=== PATIENT | male | born 1985 | race Two or more races ===

== ENCOUNTER 2020-07-06 20:21 | Emergency (ER) | payer OTHER, SELFPAY ==
--- NOTE | 2020-07-06 | XR_ITS ---
EXAMINATION: XR CHEST CLINICAL INFORMATION: Cough COMPARISON: None TECHNIQUE: 2 views of the chest were obtained. FINDINGS: No significant abnormality is noted involving the heart, lungs, mediastinum, bony thorax or soft tissues. IMPRESSION: Unremarkable examination.
[2020-07-06 20:38] VITALS: BP 121/82; PULSE 82; RESP 20; TEMP 36.7; O2SAT 98; BMI 22.3
--- NOTE | 2020-07-06 21:02 | ED.ASTHMA ---
HPI - Asthma General Chief Complaint: Upper Respiratory Symptoms Stated Complaint: ASTHMA Time Seen by Provider: 07/06/20 21:02 Source: patient Mode of arrival: ambulatory Limitations: no limitations History of Present Illness HPI Narrative: this is a 34-year-old male with significant past medical history of asthma and presents with 2 weeks of worsening shortness of breath and nasal congestion without fevers, chills, GI symptoms, or symptoms. Patient states that he has used his inhaler multiple times throughout the day without symptomatic relief. Related Data Previous Rx's Medication Instructions Recorded prednisone 40 mg PO DAILY 4 Days #8 tab 07/06/20 Allergies Allergy/AdvReac Type Severity Reaction Status Date / Time No Known Allergies Allergy Verified 07/06/20 20:37 Review of Systems Review of Systems: Pertinent positives and negatives as stated in the HPI. GEN: no fevers, chills, fatigue HEENT: no nasal congestion, sore throat, ear pain NEURO: no headache, dizziness, focal weakness PULM: no cough CV: no chest pain, palpitations, LE edema ABD: no abdominal pain, nausea, vomiting, diarrhea : no dysuria, urgency, frequency SKIN: no rash ROS otherwise negative x 10 PMFSH Past Medical History Source: nursing notes reviewed Medical History Asthma Social History Social History Alcohol intake: never Smoking Status: Never smoker Use of substances other than those prescribed or required for medical reasons: No Advance Directives: No Advance Directives Information Provided: No Physical Exam Vital Signs and I&O and Narrative: Vital Signs and I&O: Vital Signs Temp 98.1 F 07/06/20 20:38 Pulse 82 07/06/20 20:38 Resp 22 H 07/06/20 22:12 BP 121/82 07/06/20 20:38 Pulse Ox 98 07/06/20 20:38 Intake & Output 07/06/20 07/06/20 07/07/20 06:59 18:59 06:59 Weight 72.575 kg Body Mass Index 22.3 VITAL SIGNS: Reviewed. GENERAL: Well developed, well nourished, in no acute distress. HEAD: Normocephalic/atraumatic, Posterior oropharynx was without edema, erythema or exudate. EYES: PERRLA, Pupils <>, EOMI intact without pain, no nystagmus/pallor/icterus noted EARS: Ext canals without abnormality, TMs non-bulging and non-erythematous NOSE: Nares patent bilateral OROPHARYNX: no oral lesions noted, posterior pharynx clear and non-erythematous without noted tonsillar enlargement/erythema/exudates NECK: Supple, no adenopathy LUNGS: Diffuse expiratory wheezing bilaterally, no tachypnea, No adventitious sounds or accessory muscle use. SpO2<98%> CARDIOVASCULAR: Regular rate and rhythm without noted murmurs, no JVD or lower extremity edema. ABDOMEN: Soft, non-tender, non-distended with bowel sounds. No rigidity. No guarding. No palpable masses or hernias noted MUSCULOSKELETAL: No tenderness, deformities, or effusions noted on gross inspection. EXTREMITIES: No cyanosis, clubbing or edema. SKIN: Inspection of the skin reveals no rashes, ulcerations, jaundice, pallor, or petechiae. NEUROLOGIC: Alert and oriented x 3. Strength and sensation to light touch were grossly intact x 4. Course Course Course Narrative: this is a 34-year-old male with history and clinical presentation consistent with mild asthma exacerbation that fully resolved after receiving IV Solu-Medrol as well as an hour long 10 mg albuterol treatment. On re-evaluation with focus lung exam there are only trace wheeze noted and patient otherwise reports significant symptomatic relief. Patient was discharged in stable condition. Discharge Plan Discharge Clinical Impression: Asthma with acute exacerbation Qualifiers: Asthma severity: mild Asthma persistence: persistent Qualified Code(s): J45.31 - Mild persistent asthma with (acute) exacerbation Patient Disposition: Home, Self-Care Instructions: Asthma (ED) Additional Instructions: 1. consider using Claritin D to manage your nasal congestion 2. use your albuterol inhaler, 2 puffs, every 4 hours, for the next 24-48 hours. 3. establish care with a primary care provider at your earliest convenience. The patient and/or family acknowledge understanding of results (as applicable), diagnosis, treatment plan, need for follow up, and symptoms that should prompt a return to the emergency room. Prescriptions: New prednisone 20 mg tablet 40 mg PO DAILY 4 Days Qty: 8 RF: 0 Discharge Date/Time: 07/06/20 23:05
[2020-07-06] MEDS: methylPREDNISolone Sod Succ/PF 125 MG/2 ML VIAL IVPUSH (21:43)
[2020-07-06] MEDS: Albuterol Sulfate (0.083%) 2.5 MG/3 ML VIAL.NEB 10 MG INHALE (22:00)
[2020-07-06 22:12] VITALS: RESP 22
== END 2020-07-06 23:05 | disposition home or self-care (01) ==
PROVIDERS: Emergency Provider Student in an Organized Health Care Education/Training Program
DX: J45.31 Mild persistent asthma with (acute) exacerbation (principal)
CPT/HCPCS: 71046; 96374; 99284; J2930

== ENCOUNTER 2021-02-14 18:21 | Emergency (ER) | payer OTHER, SELFPAY ==
[2021-02-14 20:13] VITALS: BP 119/73; PULSE 66; RESP 20; TEMP 36.6; O2SAT 99; BMI 23.6
[2021-02-14] MEDS: Lidocaine HCl 1 % MPF 5 ML VIAL SUBCUT (20:58)
[2021-02-14] MEDS: Diphth,Pertus(ACell),Tet Adult 0.5 ML SYRINGE IM (20:58)
--- NOTE | 2021-02-14 21:04 | ED.WOUNDLAC ---
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 Denies any other symptom complaints or concerns at this time. Up-to-date on tetanus. Place: work Patient tetanus UTD: No Context: accidental Associated symptoms: none Treatments prior to arrival: bandage Related Data Previous Rx's Medication Instructions Recorded prednisone 40 mg PO DAILY 4 Days #8 tab 07/06/20 hydrocodone-acetaminophen 1 tab PO Q8H PRN #10 tab 02/14/21 Allergies Allergy/AdvReac Type Severity Reaction Status Date / Time No Known Allergies Allergy Verified 02/14/21 20:13 Review of Systems Review of Systems: Constitutional : No Fever, No Chills, Cardiovascular : No Chest Pain, No SOB Respiratory : No Dyspnea Gastrointestinal : No abdominal pain Musculoskeletal : No Joint Swelling Skin : positive skin laceration, No Foreign bodies, No rash, No surrounding erythema Neuro : No Weakness, No Numbness/tingling Psych : No SI/HI/thoughts of self injury Yes all other systems are reviewed and are negative [facility] Past Medical History Attestation statement: The following information was validated with the patient. Medical History Asthma HIV (human immunodeficiency virus infection) Social History Social History Alcohol intake: never Smoking Status: Never smoker Smoked in Last 30 Days: No Use of substances other than those prescribed or required for medical reasons: No Advance Directives: No Advance Directives Information Provided: Yes Physical Exam Vital Signs: Vital Signs: Last Vital Signs Temp 97.9 F 02/14/21 20:13 Pulse 66 02/14/21 20:13 Resp 20 02/14/21 20:13 BP 119/73 02/14/21 20:13 Pulse Ox 99 02/14/21 20:13 Body Mass Index 23.6 vital signs have been reviewed as normal and appeared to be correct. Blood pressure normal. Heart rate normal. Respiration rate normal. Temperature normal. Oxygen saturation normal. Appearance: Alert. Oriented X3. No acute distress. Head: Normal external exam. Normocephalic. Atraumatic. Eyes: PERRLA. EOMI. Conjunctiva and sclera normal. Eyelids normal. ENT: Pharynx normal. Uvula midline. Moist mucous membranes. Neck: Normal inspection. Neck supple. FROM. No adenopathy. Thyroid Normal. No meningeal signs. No neck mass noted. CVS: Normal heart rate and rhythm. Heart sound normal. No murmurs noted. Pulses normal throughout. Respiratory: No respiratory distress. Painless inspiration. Breath sounds normal. No wheezes/rales/rhonchi noted. Chest nontender. No accessory muscle usage noted or decreased air movement noted. Back: Full range of motion noted. Skin: To left thumb at the proximal aspect patient has a 2 cm intermediate laceration no active bleeding or foreign bodies noted. No tendon or ligament injury. The rest of the Skin is warm and dry. Normal skin color. Normal skin turgor. No rashes/lesions noted. Extremities: Extremities exhibit normal range of motion. Extremities nontender. Neuro: Oriented X 3. No motor deficit. No sensory deficit. Reflexes normal. Course Course Course Narrative: Patient is status post laceration repair with [address]. Patient tolerated procedure well no complications. Tetanus updated at this time. Will DC home with symptomatic treatment instructions to return in 10 days for suture removal and to follow up with primary care provider. Patient understands agrees with this plan. Procedures Laceration Laceration 1: Site: hand Side (If applicable): left Size (cm): 2 Description: linear Depth: simple, single layer Local Anesthetic: lidocaine 1% Amount of anesthesia used (mL): 3 Pre-repair: wound explored, irrigated extensively and deep structures intact Skin layer closed with: nylon Size (cm): 5-0 Number of sutures: 5 Technique: simple, interrupted Discharge Plan Discharge Clinical Impression: Laceration Patient Disposition: Home, Self-Care Instructions: Diphtheria/Tetanus Vaccine (By injection), Finger Laceration (ED) Prescriptions: New hydrocodone-acetaminophen 5-325 mg tablet 1 tab PO Q8H PRN (Reason: pain) Qty: 10 RF: 0 No Action prednisone 20 mg tablet 40 mg PO DAILY 4 Days Qty: 8 RF: 0 Referrals: Lucille Eller PA [Emergency Midlevel Provider] - 10 days (For suture removal) Stand Alone Forms: Work/School Release Print Language: Nepali
== END 2021-02-14 21:14 | disposition home or self-care (01) ==
PROVIDERS: Emergency Provider Emergency Medicine Emergency Medical Services; PCP Internal Medicine
DX: S61.012A Laceration without foreign body of left thumb without damage to nail, initial encounter (principal); W27.8XXA Contact with other nonpowered hand tool, initial encounter; Y93.89 Activity, other specified; Y92.511 Restaurant or cafe as the place of occurrence of the external cause; Y99.0 Civilian activity done for income or pay; B20 Human immunodeficiency virus [HIV] disease
CPT/HCPCS: 12001; 90471; 90715; 99284

== ENCOUNTER 2021-04-20 23:21 | Emergency (ER) | payer OTHER, SELFPAY ==
[2021-04-20 23:26] VITALS: BP 115/70; BP 135/80; PULSE 89; PULSE 90; RESP 28; TEMP 36.4; O2SAT 100; BMI 22.9
--- NOTE | 2021-04-20 23:33 | ED.URI ---
HPI - URI/Sore Throat General Chief Complaint: Skin/Abscess/Foreign Body Stated Complaint: cough Time Seen by Provider: 04/20/21 23:32 Source: patient Mode of arrival: ambulatory Limitations: no limitations History of Present Illness HPI Narrative: Patient history of anxiety head or your around 2200 feel that food is stuck in the throat very anxious maintaining his secretions able to drink fluids in the ER . patient reports severe anxiety hyperventilating patient took 25 mg atarax prior to arrival Related Data Previous Rx's Medication Instructions Recorded prednisone 40 mg PO DAILY 4 Days #8 tab 07/06/20 hydrocodone-acetaminophen 1 tab PO Q8H PRN #10 tab 02/14/21 Allergies Allergy/AdvReac Type Severity Reaction Status Date / Time No Known Allergies Allergy Verified 04/20/21 23:33 Review of Systems Review of Systems: Yes all other systems are reviewed and are negative [facility] Past Medical History Medical History Anxiety Asthma Bipolar 1 disorder HIV (human immunodeficiency virus infection) Social History Social History Alcohol intake: never Advance Directives: No Advance Directives Information Provided: Yes Physical Exam Vital Signs: Vital Signs: Last Vital Signs Temp 97.6 F 04/20/21 23:26 Pulse 89 04/20/21 23:26 Resp 28 H 04/20/21 23:26 BP 115/70 04/20/21 23:26 Pulse Ox 100 04/20/21 23:26 Body Mass Index 22.9 Appearance: Alert. Oriented X3. No acute distress. Very anxious Eyes: PERRLA, ENT: Pharynx normal. Oral Mucosa moist Neck: Normal inspection. Neck supple. CVS: Normal heart rate and rhythm. Pulses normal. Respiratory: No respiratory distress. Equal air entry bilateral, no wheezing/rales/rhonchi Abdomen: Soft and nontender. Bowel sounds are present, Skin: Skin warm and dry. Normal skin color. Extremities: No lower extremity edema. Neuro: Oriented X 3. No motor deficit. MDM - URI/Sore Throat MDM Narrative Medical decision making narrative: Patient is relaxed now feeling much better at p.o. fluids will discharge patient home Discharge Plan Discharge Clinical Impression: Foreign body sensation in throat Patient Disposition: Home, Self-Care Instructions: Esophageal Foreign Body (ED) Additional Instructions: Likely you have small food particle in pharyngeal muscles. Drink plenty of fluid have some soft bread / banana feeling should go away with time Prescriptions: No Action hydrocodone-acetaminophen 5-325 mg tablet 1 tab PO Q8H PRN (Reason: pain) Qty: 10 RF: 0 prednisone 20 mg tablet 40 mg PO DAILY 4 Days Qty: 8 RF: 0
--- NOTE | 2021-04-20 23:38 | PC.NURSE ---
at bedside for primary eval.
[2021-04-21] MEDS: Lidocaine HCl Viscous 2 % 15 ML SOLUTION MUCOUS MEM (00:13)
--- NOTE | 2021-04-21 00:14 | PC.NURSE ---
Medicated per MAR.
[2021-04-21 01:02] VITALS: BP 109/64; PULSE 68; RESP 16; O2SAT 97
== END 2021-04-21 01:10 | disposition home or self-care (01) ==
PROVIDERS: Emergency Provider Internal Medicine; PCP Internal Medicine
DX: R09.89 Other specified symptoms and signs involving the circulatory and respiratory systems (principal); F41.9 Anxiety disorder, unspecified; Z21 Asymptomatic human immunodeficiency virus [HIV] infection status; Z79.899 Other long term (current) drug therapy
CPT/HCPCS: 99283; 99284

== ENCOUNTER 2024-11-12 21:11 | Emergency (ER) | payer BC, SELFPAY ==
[2024-11-12 21:14] VITALS: BMI 23.0
--- NOTE | 2024-11-12 21:14 | ED.GENADULT ---
HPI - General Adult General Chief complaint: ETOH/Substance Use Stated complaint: substance use, in crisis Time Seen by Provider: 11/12/24 21:14 History of Present Illness ED Provider: Bhavya HURTADO narrative: The patient is a 39-year-old male who was brought to the hospital by ambulance after becoming profoundly agitated. He says that he used methamphetamine. Apparently who was at home when he used the methamphetamine. He called family members because he started to feel unwell with significant agitation. His mother, whom he called, called an ambulance and he was brought to the hospital. There has been no trauma. He denies other drug use. Related Data Previous Rx's ?Medication ?Instructions ?Recorded prednisone 20 mg tablet 40 mg (2 x 20 mg) PO DAILY 4 days 07/06/20 #8 tabs hydrocodone 5 mg-acetaminophen 325 1 tab PO Q8H PRN pain #10 tabs 02/14/21 mg tablet Allergies Allergy/AdvReac Type Severity Reaction Status Date / Time No Known Allergies Allergy Verified 11/12/24 21:17 Review of Systems Review of Systems: Yes all other systems are reviewed and are negative [facility] Past Medical History Medical History Anxiety Asthma Bipolar 1 disorder HIV (human immunodeficiency virus infection) Social History Social History Alcohol intake: never Advance Directives: No Advance Directives Information Provided: Yes Do you have a plan to hurt others: No Plan Physical Exam ED Vital Signs: Vital Signs - 24 hr 11/12/24 21:14 11/12/24 23:46 11/13/24 02:06 Temperature 97.7 F 97.1 F Pulse Rate 76 73 Respiratory Rate 16 15 Blood Pressure 101/52 L 100/54 L Pulse Oximetry 97 95 Oxygen Delivery Method Room Air Room Air Room Air BMI result Body Mass Index 23.0 Const Other: The patient was awake and alert and profoundly agitated although he seemed to be trying to cooperate with staff although he had trouble keeping still. HENMT Other: Face was symmetrical. Mucous membranes moist. Eyes Other: The patient is left eye showed around pupil about 2-3 mm in size. Patient's right eye had a pupil that was about 6 mm in size. 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 Neck Other: Full range of motion of his neck. No nuchal rigidity. No adenopathy. Resp Effort & Inspection: normal respiratory effort Auscultation: clear to auscultation bilaterally Cardio Rate: tachycardic Rhythm: regular rhythm Heart sounds: S1 normal heart sound present and S2 normal heart sound present GI Other: Abdomen was soft and did not seem tender. Skin General skin exam: no rashes or lesions noted Neuro Other: The patient was awake but very agitated and restless. He had to be held down because he could not keep still. He did not seem in coherent. Cranial nerves seemed intact. He had symmetrical tone and strength in his extremities. He seemed intoxicated and agitated but without focal finding. Extrem Other: No peripheral edema Medications Administered Discontinued Medications Generic Name Dose Route Start Last Admin Trade Name Freq PRN Reason Stop Dose Admin Sodium Chloride 1,000 mls @ 999 mls/hr 11/12/24 21:30 11/12/24 21:49 Ns IV 11/12/24 22:30 999 mls/hr .Q1H1M EVETTE Administration Potassium Chloride/Sodium Chloride 40 meq in 1,000 mls @ 250 mls/hr 11/12/24 23:00 11/13/24 00:10 Kcl 40 Meq In 0.9 % Sodium Chl IV 11/13/24 02:59 Not Given .Q4H EVETTE Lactated Ringer's 1,000 mls @ 999 mls/hr 11/12/24 23:30 11/12/24 23:54 Lr IV 11/13/24 00:30 999 mls/hr .Q1H1M EVETTE Administration Potassium Chloride 10 meq in 100 mls @ 100 mls/hr 11/12/24 23:30 11/13/24 02:11 Potassium Chloride/H20 IV 11/13/24 01:29 100 mls/hr Q1H EVETTE Administration Lorazepam 1 mg 11/12/24 23:54 11/13/24 00:02 Lorazepam 2 Mg/Ml Vial IVPUSH 11/12/24 23:55 1 mg ONCE ONE Administration Midazolam HCl 10 mg 11/12/24 21:14 11/12/24 21:17 Midazolam Hcl 5 Mg/Ml Vial IM 11/12/24 21:15 10 mg ONCE ONE Administration Midazolam HCl 5 mg 11/12/24 21:25 11/12/24 21:28 Midazolam Hcl 5 Mg/Ml Vial IM 11/12/24 21:26 5 mg ONCE ONE Administration Olanzapine 10 mg 11/12/24 21:14 11/12/24 21:29 Olanzapine 10 Mg Vial IM 11/12/24 21:15 10 mg ONCE ONE Administration Medical Decision Making Medical Decision Making [facility] Narrative: The patient this 39-year-old male who presented by ambulance after becoming acutely agitated after using methamphetamine. He denied any co-ingestants. He was agitated the point where he needed to be held and it seemed as though he required sedation. He was given IM midazolam and olanzapine. He was briefly placed in physical restraints for his own safety. Not long after receiving the IM medications he seemed much calmer and he was taken out of the restraints. His labs showed a potassium of 2.9. He was given IV fluids. He was given a some IV potassium replacement. He has been observed for several hours. He has a slight elevation in CPK which did not seem to be rising significantly quickly. A repeat potassium level was normal. At this point I think the patient has largely recovered from the methamphetamine affect although he is still sedated. The patient will be kept in the emergency room until he is awake enough to be re-evaluated. I expect he will probably be discharged. The patient will be placed in physician observation. Lab Data 11/12/24 21:45 11/13/24 02:40 Labs: Lab Results 11/12/24 11/12/24 11/13/24 Range/Units 21:45 22:18 02:40 WBC 7.1 (4.8-10.8) X10*3/uL RBC 4.56 L (4.60-5.80) X10*6/uL Hgb 13.0 L (14.0-18.0) g/dl Hct 37.2 L (42.0-52.0) % MCV 81.6 (80.0-98.0) fL MCH 28.5 (27.0-33.0) pg MCHC 34.9 (31.0-36.0) g/dl RDW 13.2 (11.0-16.0) % Plt Count 310 (160-400) X10*3/uL MPV 10.1 (9.4-12.4) fL Immature Gran % (Auto) 0.1 (0.0-0.4) % Neut % (Auto) 62.8 (45-73) % Lymph % (Auto) 21.6 (20-40) % [place] % (Auto) 11.0 (2-11) % Eos % (Auto) 3.8 (0-4) % Baso % (Auto) 0.7 (0-2) % Lymph # (Auto) 1.5 (1.2-4.9) X10*3/uL [place] # (Auto) 0.8 (0.1-1.2) X10*3/uL Eos # (Auto) 0.3 (0.0-0.4) X10*3/uL Baso # (Auto) 0.1 (0.0-0.2) X10*3/uL Abs Immat Gran (auto) 0.01 (0.00-0.03) X10*3/uL Absolute Neuts (auto) 4.4 (2.0-8.3) x10*3/uL Absolute Nucleated RBC 0.000 (0.0-0.012) X10*3/uL Nucleated RBC % (auto) 0.0 (0.0-0.2) /100WBC PT 11.7 (10.9-12.4) SEC INR 1.0 (0.9-1.1) Sodium 140 140 (135-145) mmol/L Potassium 2.9 L* 3.8 D (3.3-5.1) mmol/L Chloride 111 H 111 H (96-108) mmol/L Carbon Dioxide 21 L 21 L (22-29) mmol/L Anion Gap 11 L 12 (12-20) BUN 14 11 (9-16) mg/dL Creatinine 0.83 0.75 (0.5-1.4) mg/dL Estim Creat Clear Calc 125.0 138.4 Estimated GFR > 60 > 60 Random Glucose 96 119 H (60-115) mg/dL Calcium 7.8 L 8.3 L D (8.4-10.2) mg/dL Magnesium 2.0 (1.6-2.6) mg/dL Total Bilirubin 0.9 (0.0-1.0) mg/dL Direct Bilirubin 0.3 (0.0-0.5) mg/dL AST 37 (5-37) U/L ALT 30 (0-40) U/L Alkaline Phosphatase 53 (39-117) U/L Total Creatine Kinase 509 H 703 H (38-174) U/L Total Protein 6.6 (6.5-8.0) g/dL Albumin 3.7 (3.5-5.0) g/dL Ethyl Alcohol < 10 mg/dL Influenza Type A (PCR) NEGATIVE (Negative) Influenza Type B (PCR) NEGATIVE (Negative) RSV RNA Qual (PCR) NEGATIVE (Negative) SARS-CoV-2 RNA (RT-PCR) NEGATIVE (Negative) Discharge Plan Discharge Clinical Impression: Methamphetamine intoxication, Agitation Patient Disposition: Still a Patient Additional Instructions: You became severely agitated after using methamphetamine. Please be very careful with he substance use in the future. Follow up with your regular doctor. Return to the emergency room if worse. Prescriptions: No Action hydrocodone-acetaminophen 5-325 mg tablet 1 tab PO Q8H PRN (Reason: pain) Qty: 10 0RF prednisone 20 mg tablet 40 mg PO DAILY 4 Days Qty: 8 0RF Print Language: Kuwaiti
[2024-11-12] MEDS: Midazolam HCl 5 MG/ML VIAL 10 MG IM (21:17)
[2024-11-12] MEDS: OLANZapine 10 MG VIAL IM (21:17)
--- NOTE | 2024-11-12 21:27 | ECG_ITS ---
Test Reason : DRUG USE Blood Pressure : */* mmHG Vent. Rate : 109 BPM Atrial Rate : 109 BPM P-R Int : 140 ms QRS Dur : 100 ms QT Int : 362 ms P-R-T Axes : 79 91 48 degrees QTcB Int : 487 ms Sinus tachycardia Rightward axis Borderline ECG No previous ECGs available Referred By: Brian Latif Electronically Signed By: NINA BARLOW MD
[2024-11-12] MEDS: Midazolam HCl 5 MG/ML VIAL IM (21:28)
[2024-11-12 21:49] LABS: MANUAL DIFF FLAG NO
[2024-11-12] MEDS: 0.9 % Sodium Chloride 1,000 ML 999 ML IV (21:49)
--- NOTE | 2024-11-12 21:50 | PC.NURSE ---
PT arrived via EMS, disoriented, confused and severely agitated. PT unable to cooperate with commands. PT brought on to stretcher from EMS gurney by security. Due to risk for serious injury to self or others. provider ordered IM medications and 4 point restraints. Once calm and cooperative ([id number]) pt released from restraints. pt changed over in to safety gown. labs drawn, ekg completed. IV placed in Right wrist. medications administered as per
[2024-11-12 21:51] LABS: Basophils Absolute Auto 0.1 X10*3/uL (0.0-0.2); Basophils Percent Auto 0.7 % (0-2); Eosinophils Absolute Auto 0.3 X10*3/uL (0.0-0.4); Eosinophils Percent Auto 3.8 % (0-4); Hematocrit 37.2 % (42.0-52.0); Imm Gran Abs Auto 0.01 X10*3/uL (0.00-0.03); Imm Gran Pct Auto 0.1 % (0.0-0.4); Lymphocytes Absolute Auto 1.5 X10*3/uL (1.2-4.9); Lymphocytes Percent Auto 21.6 % (20-40); Mean Corpuscular HGB Conc 34.9 g/dl (31.0-36.0); Mean Corpuscular Hemoglobin 28.5 pg (27.0-33.0); Mean Corpuscular Volume 81.6 fL (80.0-98.0); Mean Platelet Volume 10.1 fL (9.4-12.4); Monocytes Absolute Auto 0.8 X10*3/uL (0.1-1.2); Neutrophils Absolute Auto 4.4 x10*3/uL (2.0-8.3); Neutrophils Percent Auto 62.8 % (45-73); Platelet Count 310 X10*3/uL (160-400); Red Blood Count 4.56 X10*6/uL (4.60-5.80); Red Cell Distribution Width 13.2 % (11.0-16.0); White Blood Count 7.1 X10*3/uL (4.8-10.8)
[2024-11-12 21:56] LABS: Prothrombin Time 11.7 SEC (10.9-12.4)
[2024-11-12 22:28] LABS: Influenza A PCR NEGATIVE (Negative); Influenza B PCR NEGATIVE (Negative); Resp Syncy Virus RNA Qual PCR NEGATIVE (Negative); SARS COV2 PCR INHOUSE NEGATIVE (Negative)
[2024-11-12 22:40] LABS: Alanine Aminotransferase 30 U/L (0-40); Albumin Level 3.7 g/dL (3.5-5.0); Alkaline Phosphatase 53 U/L (39-117); Anion Gap 11 (12-20); Aspartate Amino Transferase 37 U/L (5-37); Bilirubin Direct 0.3 mg/dL (0.0-0.5); Bilirubin Total 0.9 mg/dL (0.0-1.0); Blood Urea Nitrogen 14 mg/dL (9-16); Calcium 7.8 mg/dL (8.4-10.2); Carbon Dioxide 21 mmol/L (22-29); Chloride 111 mmol/L (96-108); Estimated Glomerular Filt Rate > 60; Ethanol < 10 mg/dL; Glucose Random 96 mg/dL (60-115); Potassium 2.9 mmol/L (3.3-5.1); Sodium 140 mmol/L (135-145); Total Protein 6.6 g/dL (6.5-8.0)
[2024-11-12 23:46] VITALS: BP 101/52; PULSE 76; RESP 16; TEMP 36.5; O2SAT 97
[2024-11-12] MEDS: Lactated Ringers 1,000 ML 999 ML IV (23:54)
--- NOTE | 2024-11-12 23:54 | PC.NURSE ---
manual barcode entry d/t computer issues
[2024-11-13] VITALS (7 sets, daily range): BP systolic 94–118; BP diastolic 54–71; PULSE 49–79; RESP 12–18; TEMP 36.2–36.6; O2SAT 95–100
[2024-11-13] MEDS: LORazepam 2 MG/ML VIAL 1 MG IVPUSH (00:02)
[2024-11-13] MEDS: Potassium Chloride/H20 10 MEQ/100 ML PIGGYBACK 100 MEQ IV ×2 (00:12→02:11)
--- NOTE | 2024-11-13 00:16 | PC.NURSE ---
family took pts phone and clothes
--- OUTSIDE RECORDS SUMMARY | 2024-11-13 00:25 | XMS_ITS | Continuity of Care Document ---
Author Organization [facility] Address [address] [place] [id number]- Care Team Providers Care Technical Sales Manager Name Role Phone Kirill Funk NP Primary Care Physician [phone] [facility] Date(s): 09/29/24 - 10/29/24 [facility]/[address] [address]- Encounter Type: Triage Allergies, Adverse Reactions, Alerts Substance Criticality Severity Reaction Reaction Severity Status shellfish Active Immunizations Given and Recorded Vaccine Date Status Refusal Reason SARS-CoV-2(COVID-19)mRNA-LNP vac([id number]) 09/27/23 Given pneumococcal 20-valent conjugate vaccine 09/27/23 Given influenza virus vaccine, inactivated 09/27/23 Give n influenza virus vaccine, inactivated 07/24/22 Donovan rded influenza virus vaccine, inactivated 09/13/21 Donovan rded influenza virus vaccine, inactivated 1 06/12/12 Gi frank SARS-CoV-2 (COVID-19) mRNA BNT-162b2 vac 2 09/08/21 Recorded SARS-CoV-2 (COVID-19) mRNA BNT-162b2 vac 12/09/20 Recorded SARS-CoV-2 (COVID-19) mRNA BNT-162b2 vac 11/18/20 Recorded tetanus/diphtheria/pertussis, acel(Tdap) 02/14/21 Recorded tetanus/diphtheria/pertussis, acel(Tdap) 04/24/16 Recorded Meningococcal Conjugate Vaccine 05/27/20 Recorded Meningococcal Conjugate Vaccine 10/29/19 Recorded Meningococcal Conjugate Vaccine 3 01/11/06 Given pneumococcal 23-valent vaccine 04/04/16 Recorded pneumococcal 23-valent vaccine 4 06/21/09 Given pneumococcal 13-valent vaccine 02/07/16 Recorded pneumococcal 13-valent vaccine 5 05/21/13 Given Influenza Vaccine (oldterm) 07/05/10 Given Influenza Vaccine (oldterm) 6 07/21/09 Given Influenza Vaccine (oldterm) 7 11/29/06 Given Influenza Vaccine (oldterm) 8 09/29/04 Given Influenza Vaccine (oldterm) 9 09/08/99 Given Influenza Inactive (IM) (oldterm) 10 06/21/09 Give n tetanus-diphtheria toxoids (Td) 05/01/09 Given tetanus-diphtheria toxoids (Td) 11 07/20/00 Given Pneumococcal Poly (PPV23) (oldterm) 12 12/02/06 Gi frank Hepatitis B Vaccine (old term) 13 07/20/00 Given Hepatitis B Vaccine (old term) 14 10/20/99 Given Hepatitis B Vaccine (old term) 15 09/08/99 Given Measles/Mumps/Rubella Virus Vaccine 16 09/08/99 Gi frank Tet/Diphth/Acel, Pertussis (oldterm) 17 09/08/92 G iven Tet/Diphth/Acel, Pertussis (oldterm) 18 04/26/90 G iven Tet/Diphth/Acel, Pertussis (oldterm) 19 05/24/88 G iven Tet/Diphth/Acel, Pertussis (oldterm) 20 03/27/88 G iven Tet/Diphth/Acel, Pertussis (oldterm) 21 87 G iven Polio Vaccine, Live (oldterm) 22 09/08/92 Given Polio Vaccine, Live (oldterm) 23 04/26/90 Given Polio Vaccine, Live (oldterm) 24 06/08/88 Given Polio Vaccine, Live (oldterm) 25 03/30/88 Given Polio Vaccine, Live (oldterm) 26 87 Given Haemophilus B Conj Vaccine (oldterm) 27 04/10/90 G iven Mumps Virus Vaccine 12/10/89 Given Rubella Virus Vaccine 03/05/89 Given Measles Virus Vaccine 28 03/05/89 Given 1Admin Note: vis 04/01/12 2Result Comment: per patient records received at [facility] [place] 3Admin Note: administer by Nurse 4Admin Note: vis 01/14/09 5Result Comment: [05/22/2013] Dr. Plaza 6Admin Note: LOU [employer] 7Admin Note: Administer by Nurse 8Admin Note: Administer by Nurse 9Admin Note: Administer by Nurse 10Admin Note: vis 05/11/09 11Admin Note: Administer by Nurse 12Admin Note: Administer by Nurse 13Admin Note: ADM BY RN 14Admin Note: ADM BY RN 15Admin Note: ADM BY RN 16Admin Note: ADM BY RN 17Admin Note: Administer by Nurse 18Admin Note: Administer by Nurse 19Admin Note: Administer by Nurse 20Admin Note: Administer by Nurse 21Admin Note: Administer by Nurse 22Admin Note: Aministered by RN 23Admin Note: Aministered by RN 24Admin Note: Aministered by RN 25Admin Note: Aministered by RN 26Admin Note: Aministered by RN 27Admin Note: ADM BY RN 28Admin Note: Aministered by RN Medications Jazmín 24 Hour Allergy oral tablet 1 tablet = 180 mg, By Mouth, Daily, # 30 tablet, 0 Refills, Maintenance, 10/25/23 2:46:00 PM EST, Tablet, Partial fill upon patient request if the prescription is for a schedule II opioid drug. Start Date: 10/25/23 Status: Ordered Quantity: 30.0 Unit: tablet Repeat number: 1 Aqua Care Sterile Saline 0.9% irrigation solution See Instructions, wash the effected area with saline two times/ day, # 500 mL, 0 Refills, Maintenance, 05/26/24 2:11:00 PM EDT, [facility], Partial fill upon patient request if the prescription is for a schedule II opioid drug., wash the effected area with saline two times/ day, 179.5, cm, 05/26/24 13:11:00 EDT, Height, 65.36, kg, 05/26/24 13:11:00 EDT, Dry Weight Start Date: 05/26/24 Status: Ordered Quantity: 500.0 Unit: mL Repeat number: 1 Indication: Balanitis Cabenuva 600/900 intramuscular suspension, extended release See Instructions, inject IM q2 months only to be picked up and administered by RN, # 1 each, 5Refills, Maintenance, 04/02/24 8:04:00 AM EDT, [facility], Partial fill upon patientrequest if the prescription is for a schedule II opioid drug., inject IM q2 months only to be picked up and administered by RN, 179.5, cm, 09/27/23 11:21:00 EST, Height, 71.81, kg, 03/01/23 16:11:00 EDT, Dry Weight Start Date: 04/02/24 Status: Ordered Quantity: 1.0 Unit: each Repeat number: 6 Indication: Human immunodeficiency virus [HIV] disease EpiPen 2-Gabriel 0.3 mg injectable kit See Instructions, Intramuscular Once prn allergic reaction, # 1 kit, 0 Refills, Soft Stop, 12/11/22 1:33:00 PM EDT, [facility]/pharmacy #[id number], 179.5, cm, 12/11/22 13:02:00 EDT, Height, 68.63, kg, 12/11/22 13:02:00 EDT, Dry Weight Start Date: 12/11/22 Status: Ordered Quantity: 1.0 Unit: kit Repeat number: 1 Heartburn Relief 10 mg oral tablet 1 tablet, By Mouth, 2 times a day, # 60 tablet, 5 Refills, Maintenance, 01/05/23 10:08:00 AM EDT, [id number], 179.5, cm, 12/11/22 13:02:00 EDT, Height, 68.63, kg, 12/11/22 13:02:00 EDT, Dry Weight Start Date: 01/05/23 Status: Ordered Quantity: 60.0 Unit: tablet Repeat number: 1 Narcan 4 mg/0.1 mL nasal spray = 4 mg, Nares, Both, Once, # 2 each, 11 Refills, Soft Stop, 09/27/23 12:07:00 PM EST, [facility], Partial fill upon patient request if the prescription is for a schedule II opioid drug., 179.5, cm, 09/27/23 11:21:00 EST, Height, 71.81, kg, 03/01/23 16:11:00 EDT, Dry Weight Start Date: 09/27/23 Status: Ordered Quantity: 2.0 Unit: each Repeat number: 12 Indication: Human immunodeficiency virus [HIV] disease Shingrix intramuscular injection = 0.5 mL, Intramuscular, Once, repeat dose in 2 to 6 months, # 2 each, 0 Refills, Soft Stop, 05/26/24 2:11:00 PM EDT, Powder, [facility], Partial fill upon patient request if the prescription is for a schedule II opioid drug., 0.5 mL Intramuscular Once,Instr:repeat dose in 2 to 6 months, 179.5, cm, 05/26/24 13:11:00 EDT, Height, 65.36, kg, 05/26/24 13:11:00 EDT, Dry Weight Start Date: 05/26/24 Status: Ordered Quantity: 2.0 Unit: each Repeat number: 1 Symbicort 160mcg/4.5mcg Inhaler 2, puffs, Inhalation, 2 times a day, # 6 Gm, Refills 0, Tot. Refills 0, Maintenance, 09/27/23 11:58:00 AM EST, Aerosol, Route to Pharmacy Electronically, [id number], [facility], 179.5, cm, 09/27/23 11:21:00 EST, Height, 71.81, kg, 03/01/23 16:11:00 EDT, Dry Weight Start Date: 09/27/23 Status: Ordered Quantity: 6.0 Unit: g Repeat number: 1 Tadalafil (Eqv-Cialis) 20 mg oral tablet 1 tablet = 20 mg, By Mouth, Daily, PRN as needed for erectile dysfunction, # 30 tablet, 0 Refills, Maintenance, 10/26/23 11:31:00 AM EST, Tablet, [facility]/pharmacy #[id number], Partial fill upon patient request if the prescription is for a schedule II opioid drug., 179.5, cm, 09/27/23 11:21:00 EST, Height, 71.81, kg, 03/01/23 16:11:00 EDT, Dry Weight Start Date: 10/26/23 Status: Ordered Quantity: 30.0 Unit: tablet Repeat number: 1 Ventolin HFA 108 mcg/inh inhalation aerosol with adapter 1 puffs, Inhalation, 4 times a day, PRN for wheezing, # 8 Gm, 0 Refills, Maintenance, 09/27/23 12:00:00 PM EST, Aerosol, [facility], Partial fill upon patient request if the prescription is for a schedule II opioid drug., 179.5, cm, 09/27/23 11:21:00 EST, Height, 71.81, kg, 03/01/23 16:11:00 EDT, Dry Weight Start Date: 09/27/23 Status: Ordered Quantity: 8.0 Unit: g Repeat number: 1 Problem List Condition Confirmation Course Effective Dates Status H ealth Status Informant Asthma 1 Confirmed Active ADHD Confirmed Active Bipolar II disorder, most recent episode major depressive Confirmed 12/29/08 Active Erectile dysfunction Confirmed Active Chronic GERD Confirmed Active Hemorrhoidectomy Confirmed Active HIV disease Confirmed Active Nicotine dependence 2 Confirmed Active *N/CP Manager Site Karla Klein [phone] Confirmed Active 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 Worse in winter. Last hospitalized ~2636-2853. Hospitalized often as child 21.5ppd 08/08. 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 Was treated with likely PO doxy (PCN allergy?) in 2011, and since then RPR has been negative in , Nov 2020, Jul 2021, January 2022, Jul 2022 and Nov 2022 5treated with doxycycline Social History Social History Type Response Tobacco Other: vape. Sex Sex Representation Male (finding) Patient Care team information Care Team Personnel Name: Lisa Merida RN Position: [facility] RN Member Role: Primary Care Nurse Name: Emma Davila MD Position: [facility] Physician - Infectious Disease Member Role: Lifetime Consulting Physician Address: [address] [place] [address] [place], [place] [address] Telecom: Name: Kirill Funk NP Position: [facility] PCO Associate Professional Member Role: PCP Address: [address] [place] [address]- [place] Telecom: Care Team Related Persons Name: ASHLEY JOYA Name: STACEY MUÑIZ Insurance Providers Guarantor name: T[employer] Health Plan Information #: 1 Payer: HMO [employer] Member Number: TONY Policy Number: TONY Group Number: [id number]
[2024-11-13 02:58] LABS: Anion Gap 12 (12-20); Blood Urea Nitrogen 11 mg/dL (9-16); Calcium 8.3 mg/dL (8.4-10.2); Carbon Dioxide 21 mmol/L (22-29); Chloride 111 mmol/L (96-108); Creatinine Clr Calc Pharmacy 138.4; Estimated Glomerular Filt Rate > 60; Glucose Random 119 mg/dL (60-115); Potassium 3.8 mmol/L (3.3-5.1); Sodium 140 mmol/L (135-145)
--- NOTE | 2024-11-13 08:31 | PC.NURSE ---
pt continuos on being very drowsy/sleep, respirations even and unlabored, pt will answer questions appropriate when woken up, pt does know that he is in [facility] denies pain but then right back to sleep, isrrael sinus on the monitor 50-40's
--- NOTE | 2024-11-13 10:45 | PC.NURSE ---
pt continuos on bring sleepy/groggy
[2024-11-13 11:35] LABS: Appearance Urine Clear; Color Urine Yellow; Glucose Urine UA Negative (Negative); Leukocyte Esterase Urine Negative (Negative); Nitrite Urine Negative (Negative); PH 5.5 (5.0-9.0); Urine Blood Negative (Negative); Urine Ketones Negative (Negative); Urine Protein Negative (Neg-Trace)
[2024-11-13 11:47] LABS: Amphetamine Screen Urine POSITIVE (Not Detect); Barbiturates, Urine Not Detected (Not Detect); Benzodiazepines Screen Urine POSITIVE (Not Detect); Buprenorphine Scr Not Detected (Not Detect); Cannabinoid Screen Urine POSITIVE (Not Detect); Cocaine Screen Urine Not Detected (Not Detect); Fentanyl, urine Not Detected (Not Detect); Methadone Screen, Urine Not Detected (Not Detect); Opiate Screen Urine Not Detected (Not Detect); Oxycodone Screen Urine Not Detected (Not Detect); Phencyclidine Screen Urine Not Detected (Not Detect)
--- NOTE | 2024-11-13 12:44 | PC.NURSE ---
pt is currently fully awake and eating food
[2024-11-13] MEDS: Naloxone HCl Nasal TAKE HOME 4 MG SPRAY 8 MG NOSTRILALT (13:42)
== END 2024-11-13 13:47 | disposition home or self-care (01) ==
PROVIDERS: Emergency Medicine; Emergency Provider Emergency Medicine Emergency Medical Services
DX: R45.1 Restlessness and agitation (principal); T43.651A Poisoning by methamphetamines accidental (unintentional), initial encounter; T43.655A Adverse effect of methamphetamines, initial encounter; Y92.9 Unspecified place or not applicable; F43.0 Acute stress reaction; F41.9 Anxiety disorder, unspecified; Z51.81 Encounter for therapeutic drug level monitoring; Z79.899 Other long term (current) drug therapy; R11.2 Nausea with vomiting, unspecified; Z03.818 Encounter for observation for suspected exposure to other biological agents ruled out
CPT/HCPCS: 0241U; 36415; 80048; 80076; 80307; 81003; 82550; 83735; 85025; 85610; 93005; 96361; 96365; 96366; 96372; 96375; 99285; J2060; J2250; J2359; J3480; J7120; S9485

== ENCOUNTER → 2024-11-12 21:27 | Outpatient (BNV) | payer BC, SELFPAY | PROVIDERS: Emergency Provider Emergency Medicine; Visit Provider Internal Medicine Cardiovascular Disease | DX: R00.0 Tachycardia, unspecified (principal) | CPT/HCPCS: 93010 ==